=== PATIENT | female | born 1975 | race Caucasian/White ===

== ENCOUNTER 2016-12-04 08:41 | Emergency (ER) | payer OTHER ==
[2016-12-04 10:10] LABS: BILIRUBIN NEGATIVE (NEGATIVE); BLOOD NEGATIVE Ery/uL (NEGATIVE); CLARITY CLEAR (CLEAR); COLOR YELLOW (YELLOW); GLUCOSE (U) NORMAL (NORMAL); KETONE (U) NEGATIVE (NEGATIVE); LEUKOCYTES 1+ Leu/uL (NEGATIVE); NITRITE NEGATIVE (NEGATIVE); PROTEIN NEGATIVE (NEGATIVE); SPECIFIC GRAVITY 1.025 (1.001-1.030); UROBILINOGEN 0.2 mg/dL (0.2-1.0)
[2016-12-04 10:14] LABS: CREATININE 0.8 mg/dL (0.5-1.0); POTASSIUM 4.4 mmol/L (3.5-5.1)
[2016-12-04 10:21] LABS: BASOPHIL 0.2 % (0-2); EOSINOPHIL 4.6 % (0-5); HCT 42.7 % (37.0-47.0); HGB 14.1 g/dl (12.5-16.0); LYMPHOCYTE 35.8 % (15-48); MCH 29.3 pg (25.0-31.0); MCV 88.8 fL (78.0-100.0); MPV 11.3 fL (6.0-9.5); NEUTROPHIL 48.4 % (41-80); PLT 278 K/Ul (150-400); RBC 4.81 M/uL (4.20-5.40); RDW 14.1 % (11.5-14.0); WBC 5.2 K/uL (4.0-10.5)
[2016-12-04 10:40] LABS: BACTERIA 2+
[2016-12-04 10:41] LABS: MUCOUS TRACE
== END 2016-12-04 10:50 | disposition home or self-care (01) ==
LOC: FER 08:41
PROVIDERS: Emergency Medicine
DX: N39.0 Urinary tract infection, site not specified (principal); Z87.440 Personal history of urinary (tract) infections; Z87.42 Personal history of other diseases of the female genital tract
CPT/HCPCS: 36415; 80048; 81001; 83690; 85025; 87088; 99283

== ENCOUNTER → 2020-11-30 | Day surgery (SDC) | payer OTHER ==
[~2020-11-30] MED LIST: AMITIZA8 MCG PO; ANTIVERT25 MG PO; BACLOFEN 10MG T10 MG PO; BENTYL10 MG PO; BIOTIN1 MG PO; BLACK ELDERBER1 EACH PO; BUTALB-ASPIRIN1 EACH PO; CIPRO500 MG PO; COLACE100 M1 PO; COLLAGEN PLUS1 EACH PO; CRANBERRY400 MG PO; FIBER500 MG PO; FLOVENT HF120 PUFFS/ INH; FOLIC ACID1 M1 PO; IBUPROFEN800 MG PO; MAG-OXIDE 400M400 MG PO; METOPROLOL SUCC25 MG PO; MIRALAX 238GM238 GM PO; MIRALAX17 GM PO; MIRAPEX0.25 MG PO; NAPROXEN500 MG PO; ONDANSETRON ODT4 MG PO; PEPCID40 MG PO; PHENERGAN25 M1 PO; PROBIOTIC1 EAC1 PO; PYRIDIUM200 MG PO; ROBAXIN750 MG PO; SINGULAIR10 MG PO; SYMBICORT 80-10.2 GM INH; TURMERIC500 M1 PO; ULTRAM50 MG PO; VENTOLIN HFA IN18 GM INH; VITAMIN A10000 UNI1 PO; VITAMIN B-121000 MC1 PO; VITAMIN C500 M5 PO; VITAMIN D325 MC4 PO; VOLTAREN **OUT75 MG PO; ZOFRAN4 MG PO; ZOFRAN8 MG PO; ZYRTEC10 M3 PO
== END | disposition home or self-care (01) ==
LOC: FAS 09:05
DX: K29.50 Unspecified chronic gastritis without bleeding (principal); K29.80 Duodenitis without bleeding; M79.7 Fibromyalgia; J45.909 Unspecified asthma, uncomplicated; I10 Essential (primary) hypertension; K21.9 Gastro-esophageal reflux disease without esophagitis; Z86.73 Personal history of transient ischemic attack (TIA), and cerebral infarction without residual deficits; Z98.890 Other specified postprocedural states; Z79.899 Other long term (current) drug therapy
CPT/HCPCS: J2250; J2704; J7120

== ENCOUNTER 2021-01-17 16:04 | Day surgery (SDCO) | payer OTHER ==
[~2021-01-17 16:04] MED LIST changes: -AMITIZA8 MCG PO; -COLACE100 M1 PO; -METOPROLOL SUCC25 MG PO; -MIRALAX17 GM PO
[2021-01-17 16:29] LABS: BASOPHIL 0.6 % (0-2); EOSINOPHIL 2.2 % (0-5); LYMPHOCYTE 41.2 % (15-48); MCH 30.9 pg (25.0-31.0); MCV 90.7 fL (78.0-100.0); MONOCYTE 7.7 % (0-12); MPV 10.5 fL (6.0-9.5); NEUTROPHIL 48.3 % (41-80); NRBC 0; PLT 344 K/uL (150-400); RBC 5.18 M/uL (4.20-5.40); RDW 13.6 % (11.5-14.0); WBC 8.1 K/uL (4.0-10.5)
[2021-01-17 17:05] LABS: ALBUMIN 4.1 g/dL (3.4-5.0); BILIRUBIN - TOTAL 0.4 mg/dL (0.2-1.0); BUN/CREAT RATIO (CALC) 23.6 RATIO; CREATININE 0.72 mg/dL (0.51-0.95); GLOBULIN (CALCULATION) 4.3 g/dL; POTASSIUM 4.1 mmol/L (3.5-5.1); TOTAL PROTEIN 8.4 g/dL (6.4-8.2)
[2021-01-17] MEDS ORDERED: METOPROLOL SUCC25 MG PO (21:11)
[2021-01-17 23:57] LABS: HCG (URINE) SCREEN NEGATIVE (NEGATIVE)
[2021-01-18] LABS: BILIRUBIN NEGATIVE (NEGATIVE); BLOOD NEGATIVE Ery/uL (NEGATIVE); COLOR YELLOW (YELLOW); GLUCOSE (U) NORMAL (NORMAL); LEUKOCYTES NEGATIVE Leu/uL (NEGATIVE); NITRITE NEGATIVE (NEGATIVE); PROTEIN NEGATIVE (NEGATIVE); UROBILINOGEN 0.2 mg/dL (0.2-1.0); pH 8.5 (5.0-9.0)
[2021-01-18 00:14] LABS: AMORPHOUS PHOSPHATE CRYSTALS MODERATE; BACTERIA TRACE; CLARITY HAZY (CLEAR); URINARY WBC RARE
[2021-01-18 07:23] LABS: BASOPHIL 0.5 % (0-2); EOSINOPHIL 1.8 % (0-5); HCT 43.2 % (37.0-47.0); HGB 14.4 g/dl (12.5-16.0); LYMPHOCYTE 32.9 % (15-48); MCH 30.8 pg (25.0-31.0); MCHC 33.3 g/dL (32.0-36.0); MCV 92.5 fL (78.0-100.0); MONOCYTE 6.8 % (0-12); MPV 10.5 fL (6.0-9.5); NEUTROPHIL 57.7 % (41-80); NRBC 0; PLT 308 K/uL (150-400); RBC 4.67 M/uL (4.20-5.40); RDW 13.7 % (11.5-14.0); WBC 7.6 K/uL (4.0-10.5)
[2021-01-18 07:44] LABS: BUN/CREAT RATIO (CALC) 18.8 RATIO; CREATININE 0.69 mg/dL (0.51-0.95); POTASSIUM 4.2 mmol/L (3.5-5.1)
[2021-01-18] MEDS ORDERED: AMITIZA8 MCG PO (11:13)
[2021-01-18] MEDS ORDERED: MIRALAX 238GM238 GM PO (11:54)
[2021-01-18 12:58] LABS: URIC ACID 3.6 mg/dL (2.6-6.2)
[2021-01-18 13:14] LABS: C-REACTIVE PROTEIN < 0.20 mg/dL (<=0.90)
== END 2021-01-18 13:54 | disposition home or self-care (01) ==
LOC: FER 16:04 → FMS 20:05
PROVIDERS: Emergency Medicine; Nurse Practitioner; ADMIT Allergy & Immunology Allergy
DX: K58.1 Irritable bowel syndrome with constipation (principal); G89.29 Other chronic pain; R10.13 Epigastric pain; M79.7 Fibromyalgia; J45.909 Unspecified asthma, uncomplicated; I10 Essential (primary) hypertension; Z86.73 Personal history of transient ischemic attack (TIA), and cerebral infarction without residual deficits; Z87.440 Personal history of urinary (tract) infections; Z79.899 Other long term (current) drug therapy; Z20.822 Contact with and (suspected) exposure to COVID-19
CPT/HCPCS: 36415; 71045; 74018; 74240; 80048; 80053; 81001; 81003; 83690; 84439; 84443; 84484; 84550; 84703; 85025; 85610; 85730; 86140; 87088; 93005; C9113; G0378; J1170; J1885; J2405; J7030; Q9967; U0002

== ENCOUNTER 2021-03-24 13:35 | Emergency (ER) | payer OTHER ==
[~2021-03-24 13:35] MED LIST changes: +AMITIZA8 MCG PO; +METOPROLOL SUCC25 MG PO
[2021-03-24 15:14] LABS: BASOPHIL 0.5 % (0-2); HCT 44.4 % (37.0-47.0); HGB 14.6 g/dl (12.5-16.0); LYMPHOCYTE 34.4 % (15-48); MCH 30.2 pg (25.0-31.0); MCHC 32.9 g/dL (32.0-36.0); MCV 91.9 fL (78.0-100.0); MONOCYTE 9.3 % (0-12); MPV 10.5 fL (6.0-9.5); NEUTROPHIL 51.5 % (41-80); NRBC 0; PLT 279 K/uL (150-400); RBC 4.83 M/uL (4.20-5.40); RDW 13.3 % (11.5-14.0); WBC 6.2 K/uL (4.0-10.5)
[2021-03-24 15:14] LABS: BILIRUBIN NEGATIVE (NEGATIVE); BLOOD NEGATIVE Ery/uL (NEGATIVE); CLARITY CLEAR (CLEAR); COLOR YELLOW (YELLOW); GLUCOSE (U) NORMAL (NORMAL); LEUKOCYTES NEGATIVE Leu/uL (NEGATIVE); NITRITE NEGATIVE (NEGATIVE); PROTEIN NEGATIVE (NEGATIVE); SPECIFIC GRAVITY 1.025 (1.001-1.030); UROBILINOGEN 0.2 mg/dL (0.2-1.0)
[2021-03-24 15:25] LABS: BACTERIA TRACE
[2021-03-24 15:38] LABS: ALBUMIN 3.5 g/dL (3.4-5.0); BILIRUBIN - TOTAL 0.4 mg/dL (0.2-1.0); BUN/CREAT RATIO (CALC) 14.5 RATIO; CREATININE 0.76 mg/dL (0.51-0.95); GLOBULIN (CALCULATION) 3.8 g/dL; POTASSIUM 4.8 mmol/L (3.5-5.1); TOTAL PROTEIN 7.3 g/dL (6.4-8.2)
[2021-03-24] MEDS ORDERED: COLACE100 M1 PO (16:20)
[2021-03-24] MEDS ORDERED: MIRALAX17 GM PO (16:20)
== END 2021-03-24 16:33 | disposition home or self-care (01) ==
LOC: FER 13:35
PROVIDERS: Physician Assistant
DX: K59.00 Constipation, unspecified (principal); G89.29 Other chronic pain; M54.5 Low back pain; R11.0 Nausea; R50.9 Fever, unspecified; K21.9 Gastro-esophageal reflux disease without esophagitis; J45.909 Unspecified asthma, uncomplicated; Z86.14 Personal history of Methicillin resistant Staphylococcus aureus infection
CPT/HCPCS: 36415; 80053; 81001; 85025

== ENCOUNTER 2021-07-29 06:19 | Emergency (ER) | payer OTHER ==
[~2021-07-29 06:19] MED LIST changes: +COLACE100 M1 PO; +MIRALAX17 GM PO
[2021-07-29 07:15] LABS: BILIRUBIN NEGATIVE (NEGATIVE); BLOOD TRACE-INTACT Ery/uL (NEGATIVE); CLARITY CLEAR (CLEAR); COLOR YELLOW (YELLOW); GLUCOSE (U) NORMAL (NORMAL); LEUKOCYTES NEGATIVE Leu/uL (NEGATIVE); NITRITE NEGATIVE (NEGATIVE); PROTEIN NEGATIVE (NEGATIVE); UROBILINOGEN 0.2 mg/dL (0.2-1.0); pH 5.5 (5.0-9.0)
[2021-07-29 07:24] LABS: BACTERIA 1+
[2021-07-29] MEDS ORDERED: METRONIDAZOLE500 MG PO (08:26)
[2021-08-01 00:08] LABS: CHLAMYDIA TRACHOMATIS, NAA Negative (Negative); NEISSERIA GONORRHOEAE, NAA Negative (Negative)
== END 2021-07-29 08:45 | disposition home or self-care (01) ==
LOC: FER 06:19
PROVIDERS: Emergency Medicine
DX: N76.0 Acute vaginitis (principal); J45.909 Unspecified asthma, uncomplicated
CPT/HCPCS: 81001; 87210; 87491; 87591; 99284

== ENCOUNTER 2022-02-24 14:54 | Emergency (ER) | payer OTHER ==
[~2022-02-24 14:54] MED LIST changes: +METRONIDAZOLE500 MG PO
[2022-02-24 15:50] LABS: BASOPHIL 0.4 % (0-2); HCT 43.8 % (37.0-47.0); HGB 14.4 g/dl (12.5-16.0); LYMPHOCYTE 35.7 % (15-48); MCH 29.3 pg (25.0-31.0); MCHC 32.9 g/dL (32.0-36.0); MONOCYTE 6.8 % (0-12); NEUTROPHIL 52.8 % (41-80); NRBC 0; PLT 299 K/uL (150-400); RBC 4.92 M/uL (4.20-5.40); RDW 13.2 % (11.5-14.0); WBC 6.8 K/uL (4.0-10.5)
[2022-02-24 16:08] LABS: ALBUMIN 3.9 g/dL (3.4-5.0); BILIRUBIN - TOTAL 0.2 mg/dL (0.2-1.0); BUN/CREAT RATIO (CALC) 14.9 RATIO; CREATININE 0.74 mg/dL (0.51-0.95); GLOBULIN (CALCULATION) 3.5 g/dL; POTASSIUM 3.4 mmol/L (3.5-5.1); TOTAL PROTEIN 7.4 g/dL (6.4-8.2)
[2022-02-24] MEDS ORDERED: IMITREX100 MG PO (18:30)
== END 2022-02-24 18:45 | disposition home or self-care (01) ==
LOC: FER 14:54
PROVIDERS: Emergency Medicine
DX: R07.89 Other chest pain (principal); Z91.030 Bee allergy status
CPT/HCPCS: 36415; 71045; 80053; 84484; 85025; 85379; 93005

== ENCOUNTER 2022-04-17 14:22 | Emergency (ER) | payer OTHER ==
[~2022-04-17 14:22] MED LIST changes: +IMITREX100 MG PO
[2022-04-17 17:14] LABS: BASOPHIL 0.3 % (0-2); EOSINOPHIL 1.5 % (0-5); HCT 42.6 % (37.0-47.0); LYMPHOCYTE 6.1 % (15-48); MCH 29.2 pg (25.0-31.0); MCHC 32.9 g/dL (32.0-36.0); MCV 88.9 fL (78.0-100.0); MONOCYTE 6.7 % (0-12); MPV 11.7 fL (6.0-9.5); NEUTROPHIL 85.1 % (41-80); NRBC 0; PLT 232 K/uL (150-400); RBC 4.79 M/uL (4.20-5.40); RDW 13.5 % (11.5-14.0); WBC 6.5 K/uL (4.0-10.5)
[2022-04-17 17:25] LABS: BUN/CREAT RATIO (CALC) 11.9 RATIO; CREATININE 0.67 mg/dL (0.51-0.95); POTASSIUM 3.6 mmol/L (3.5-5.1)
[2022-04-17 17:56] LABS: CORONAVIRUS 2019 SARS-COV-2 POSITIVE (NEGATIVE); INFLUENZA A NAA NEGATIVE (NEGATIVE)
[2022-04-17] MEDS ORDERED: VANCOCIN HCL125 MG PO (18:33)
== END 2022-04-17 19:26 | disposition home or self-care (01) ==
LOC: FER 14:22
PROVIDERS: Internal Medicine; Nurse Practitioner Family
DX: J34.0 Abscess, furuncle and carbuncle of nose (principal); U07.1 COVID-19; I10 Essential (primary) hypertension; J44.9 Chronic obstructive pulmonary disease, unspecified
CPT/HCPCS: 36415; 80048; 85025; J3370; J7050; U0002